=== PATIENT | female | born 1955 | race Caucasian/White ===

== ENCOUNTER 2016-08-07 15:34 | Inpatient (IN) | payer OTHER ==
[~2016-08-07] VITALS: Ht 170.2 cm; Wt 51.6 kg
--- NOTE | ~2016-08-07 | CATHLAB ---
[facility] [address] [place] [address] INVASIVE PROCEDURE REPORT Name: VELMA CHEN JENNIFER Room #: 213-P [facility] IN ..#: [id number] Admission: 08/07/16 Attend Phys: Memo Parish, Discharge: Date of : 59 Date of Service: 08/08/16 1317 Report #: [id number] THIS REPORT FOR: //name// APPROVED REPORT Patient Location: In-Patient Room #: Procedure: The potential benefits and risks of the procedure were discussed with the patient in detail. Full written and informed consent was obtained. Velma Chen was brought into the catheterization suite where her right groin was prepped and draped in a sterile fashion. She was sedated with intravenous Versed. 1% Xylocaine was used as local anesthetic. A 6 Australian sheath was placed in the right femoral artery by the modified Seldinger technique. Left heart catheterization was performed with a 6 Australian angled pigtail catheter. Ventriculography was performed in the SORIANO projection. Pullback gradients were measured across the aortic valve. Selective coronary angiography was performed with a 6 Australian left and right 4 cm Louise coronary catheter. All diagnostic catheters removed. Attention was turned to a critical narrowing within the mid right coronary. She was premedicated with aspirin Effient load, heparin bolus, and Integrilin. A 6 Australian JR4 guide catheter was placed over wire with its tip at the origin of the right coronary. A 0.014 inch luge wire was used to traverse the mid right coronary stenosis which was predilated with a 3.0 by 12 mm Euphora balloon. This balloon was removed and the lesion was stented with a 4.0 by 22 mm resolute stent deployed at 16 geovani for 30 seconds. The deployment balloon was removed and the stent was postdilated with a 4.0 x 12 mm NC Trek inflated several times in upwards of 22 geovani within the stent. Additional images were obtained. All catheters removed. A minx device was used upon removal of the right groin sheath. LVSP: 140 LVEDP 12 No gradient on pullback across the aortic valve Central arotic pressure: 142/70 VENTRICULOGRAPHY: Ventriculography demonstrated normal global and regional left ventricular systolic function. Ejection fraction 65%. [facility] [address] [place] [address] INVASIVE PROCEDURE REPORT Name: VELMA CHEN [facility] Room #: 213-P [facility]#: [id number] Admission: 08/07/16 Attend Phys: Memo Parish, Discharge: Date of : 59 Date of Service: 08/08/16 1317 Report #: [id number] SELECTIVE CORONARY ANGIOGRAPHY: 1. Left main: The left main was angiographically normal. 2. Left anterior descending: The left anterior descending was a large vessel that extended to the apex. The mid LAD just after the first septal hotel services supervisor exhibited a 30-40% stenosis this was followed by a 50% stenosis. The remaining portion of the LAD appeared to be angiographically normal. 3. Circumflex: Circumflex was small and nondominant 4. Right coronary artery: The right coronary was large and dominant. The mid right coronary exhibited a severe 95% stenosis POST ANGIOPLASTY AND STENTING: The mid right coronary was ballooned and then stented with a 4.0 x 22 mm resolute medicated stent, postdilated to 4.25 mm with a noncompliant balloon. 0% residual stenosis remained with REINA-3 flow maintained. Conclusion 1. Normal global and regional left ventricular systolic function. 2. Normal left main 3. Moderate mid LAD disease of 40-50% 4. Small, nondominant circumflex 5. Dominant right coronary with a critical mid right coronary stenosis successfully stented with a 4.0 x 22 mm resolute medicated stent postdilated to 4.2 mm <ELECTRONICALLY SIGNED> By: Adolfo Watts MD, [facility] 08/08/167 16 16 Adolfo Watts MD, FAC /INF
--- NOTE | ~2016-08-07 | EKG ---
[address] [address] ELECTROCARDIOGRAM REPORT Name: VELMA CHEN Room #: 213-P ADM IN M.R.#: [id number] Admission: 08/07/16 Attend Phys: Memo Parish MD, Discharge: Date of : 59 Report #: [id number] THIS REPORT FOR: //name// [facility] Test Date: 2016-08-07 Test Time: 17:53:33 Pat Name: VELMA CHEN Department: Room: 213 P Gender: F Physical Chemistry Teacher: ROSY : 1955 Requested By: Memo Parish Order Number: [id number] : Andrea Hubbard Measurements Intervals [place] Rate: 59 P: -42 KS: 144 QRS: 7 QRSD: 86 T: 20 QT: 407 QTc: 404 Interpretive Statements Sinus rhythm Compared to ECG 10/27/2014 22:06:58 Myocardial infarct finding no longer present Electronically Signed On 08-08-2016 16:18:27 CDT by Andrea Hubbard [email or web address] <ELECTRONICALLY SIGNED> By: Andrea Hubbard MD 08/08/16 1618 175 175 Andrea Hubbard MD /DAMASO
--- NOTE | ~2016-08-07 | EKG ---
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
--- NOTE | ~2016-08-07 | EKG ---
[place] [address] [facility] [place] [address] ELECTROCARDIOGRAM REPORT Name: VELMA CHEN JENNIFER Room #: 213- DIS IN M.R.#: [id number] Admission: 08/07/16 Attend Phys: Memo Parish MD, Discharge: 08/09/16 Date of : 59 Report #: [id number] THIS REPORT FOR: //name// [facility] Test Date: 2016-08-09 Test Time: 07:43:13 Pat Name: VELMA CHEN Department: Room: 213 Gender: F Staffing Specialist: ROSY : 1955 Requested By: Adolfo Watts Order Number: [id number] MD: Adolfo Watts Measurements Intervals [place] Rate: 65 P: 7 NC: 159 QRS: 10 QRSD: 91 T: 17 QT: 399 QTc: 415 Interpretive Statements Sinus rhythm Poor R wave progression Baseline wander in lead(s) V4,V5 Compared to ECG 08/08/2016 13:40:55 No significant change was found Electronically Signed On 08-10-2016 8:40:53 CDT by Adolfo Watts [email or web address] <ELECTRONICALLY SIGNED> By: Adolfo Watts MD, FACC 08/10/16 0840 0743 0743 Adolfo Watts MD, [facility] /EPI
--- NOTE | ~2016-08-07 | D ---
[facility] [place] [address] DISCHARGE SUMMARY Name: VELMA CHEN Room #: 213-P [facility] IN M.R.#: [id number] Admission: 08/07/16 Attend Phys: Memo Parish MD, Discharge: 08/09/16 Date of : 59 Report #: [id number] THIS REPORT FOR: //name// CC: Zion Parish [facility]: The patient is a 61-year-old female admitted with unstable anginal symptoms after having a week of jaw pain and abnormal stress echo in my office. She was ruled out with a troponin of 0.05, had recurrent pain and taken to the laborer concrete paving yesterday by my partner, Dr. Adolfo Watts. She had a subtotal mid RCA lesion. She had a 50% LAD lesion. He placed a 4.0 x 22 Resolute drug-eluting stent and postdilated to 4.2 mm in size, yielding 0% residual and REINA grade 3 flow. Small hematoma in the right groin ensued. This is soft without bruit. Minimal discomfort. She is up and ambulating and feeling well. Laboratory work is unremarkable. Troponin was 0.06 and then 0.05, not diagnostic for an ischemic event. Lipids favorable. Cholesterol 128, HDL 62, LDL 53, trig 65. Creatinine 0.7, potassium 3.9. H and H 12.3 and 35.9. She will be discharged to home on aspirin and Effient dual antiplatelet therapy for 6 months. I will decrease to a baby aspirin after a month. PPI as tolerated, Lipitor 40 and lisinopril 5 mg. No lifting for 48 hours. No lying in tub, Jacuzzi or bray for a week. Follow up will be with me in 1 month. I have discussed this in detail with her and her , Nick Chen. DISCHARGE DIAGNOSES: 1. Unstable angina. 2. Coronary artery disease, successful stent to dominant right coronary artery as stated above. 3. Preserved left ventricular function, 50% left anterior descending lesion. We will follow. 4. Borderline hypercholesterolemia, although low on the readings here. 5. Prior tobacco use. RECOMMENDATIONS AND PLAN: As stated above. She will call with any issues. May start aerobic activity after 72 hours. No lifting for a week because of the groin. By: 1145 1354 Memo Parish MD, FACC /nt
--- NOTE | ~2016-08-07 | EKG ---
[address] [address] ELECTROCARDIOGRAM REPORT Name: VELMA CHEN Room #: 213-P ADM IN M.R.#: [id number] Admission: 08/07/16 Attend Phys: Meom Parish MD, Discharge: Date of : 59 Report #: [id number] THIS REPORT FOR: //name// [facility] Test Date: 2016-08-08 Test Time: 08:10:07 Pat Name: VELMA CHEN Department: Room: 213 P Gender: F Hose Inspector And Patcher: MAGDALENE : 1955 Requested By: Donya Swan Order Number: [id number] MD: Andrea Hubbard Measurements Intervals [place] Rate: 68 P: 23 [place]: 145 QRS: 0 QRSD: 87 T: 5 QT: 403 QTc: 429 Interpretive Statements Sinus rhythm Probable anterior infarct, old Baseline wander in lead(s) V2 Compared to ECG 10/27/2014 22:06:58 No significant changes Electronically Signed On 08-08-2016 16:28:09 CDT by Andrea Hubbard [email or web address] <ELECTRONICALLY SIGNED> By: Andrea Hubbard MD 08/08/16 1628 0810 0810 Andrea Hubbard MD /EPI
[~2016-08-07 15:34] MED LIST: ASA5UEC PO; CELEBREX 200 M200 M1 PO; OXYCONTIN10 M1 PO; PERCOCET 10-321 EACH PO
[2016-08-07 17:12] VITALS: BP 164/98
[2016-08-07 18:19] LABS: HEMATOCRIT 40.9 % (37.0-47.0); HEMOGLOBIN 14.2 gm/dL (12.0-15.0); MCH 34.1 pg (26.0-34.0); MCHC 34.8 g/dL (28.0-37.0); MCV 98.2 fL (80.0-100.0); RBC 4.17 mil/uL (4.20-5.00); RDW 12.7 % (10.5-14.5); WBC 5.3 thou/uL (4.0-11.0)
[2016-08-07 20:30] VITALS: BP 129/54; BP 138/87
[2016-08-08] VITALS (15 sets, daily range): BP systolic 68–136; BP diastolic 42–98
[2016-08-08 11:48] LABS: CALCIUM 9.4 mg/dL (8.5-10.1); CREATININE 0.7 mg/dL (0.6-1.0)
[2016-08-09 04:20] VITALS: BP 107/68
[2016-08-09 04:44] LABS: HEMATOCRIT 35.9 % (37.0-47.0); HEMOGLOBIN 12.3 gm/dL (12.0-15.0); MCH 34.3 pg (26.0-34.0); MCHC 34.3 g/dL (28.0-37.0); MCV 99.8 fL (80.0-100.0); RBC 3.59 mil/uL (4.20-5.00); RDW 12.5 % (10.5-14.5)
[2016-08-09 05:02] LABS: ANION GAP 6 mmol/L (7-16); BUN 12 mg/dL (7-18); CALCIUM 8.4 mg/dL (8.5-10.1); CHLORIDE 107 mmol/L (98-107); CHOLESTEROL 128 mg/dL (<200); CO2 28 mmol/L (21-32); CREATININE 0.7 mg/dL (0.6-1.0); GLUCOSE 89 mg/dL (74-106); HDL CHOLESTEROL 62 mg/dL (>40); LDL CHOLESTEROL 53 mg/dL (<100); POTASSIUM 3.9 mmol/L (3.5-5.1); SODIUM 141 mmol/L (136-145); TC:HDL 2.1 Ratio (Not establshd); TRIGLYCERIDE 65 mg/dL (<150); TROPONIN-I 0.05 ng/mL (<0.04-0.07); VLDL 13 mg/dL (<40)
[2016-08-09 05:06] LABS: SERUM ASSESSMENT Clear
[2016-08-09 07:37] VITALS: BP 122/83
[2016-08-09 08:00] VITALS: BP 122/83
[2016-08-09] MEDS ORDERED: ATORVASTATIN CA40 MG PO (10:03)
[2016-08-09] MEDS ORDERED: ASPIRIN EC81 M1 PO (10:03)
[2016-08-09] MEDS ORDERED: LISINOPRIL5 MG PO (10:03)
[2016-08-09] MEDS ORDERED: EFFIENT10 MG PO (10:03)
[2016-08-09 10:20] VITALS: BP 122/83
[2016-08-09 13:01] VITALS: BP 122/83
== END 2016-08-09 13:06 | disposition home or self-care (01) | DRG 247 ==
LOC: 2N 15:34
PROVIDERS: Internal Medicine; Internal Medicine Cardiovascular Disease
PROC: B2151ZZ Fluoroscopy of Left Heart using Low Osmolar Contrast (ICD-10-PCS; principal; 2016-08-08)
PROC: 027034Z Dilation of Coronary Artery, One Artery with Drug-eluting Intraluminal Device, Percutaneous Approach (ICD-10-PCS; principal; 2016-08-08)
PROC: B2111ZZ Fluoroscopy of Multiple Coronary Arteries using Low Osmolar Contrast (ICD-10-PCS; principal; 2016-08-08)
PROC: 4A023N7 Measurement of Cardiac Sampling and Pressure, Left Heart, Percutaneous Approach (ICD-10-PCS; principal; 2016-08-08)
DX: I25.110 Atherosclerotic heart disease of native coronary artery with unstable angina pectoris (principal); E78.00 Pure hypercholesterolemia, unspecified; R42 Dizziness and giddiness; F17.290 Nicotine dependence, other tobacco product, uncomplicated; Z79.82 Long term (current) use of aspirin; Z79.899 Other long term (current) drug therapy; Z82.49 Family history of ischemic heart disease and other diseases of the circulatory system
CPT/HCPCS: 10081

== ENCOUNTER → 2017-06-24 | Outpatient (CLI) | payer OTHER ==
[~2017-06-24] MED LIST changes: +ASPIRIN EC81 M1 PO; +ATORVASTATIN CA40 MG PO; +EFFIENT10 MG PO; +LISINOPRIL5 MG PO
== END ==
LOC: NUC 07:10 → EDSTATUS 13:42 → NUC 13:45
DX: R07.9 Chest pain, unspecified (principal); R07.0 Pain in throat; I25.10 Atherosclerotic heart disease of native coronary artery without angina pectoris

== ENCOUNTER → 2019-07-05 | Outpatient (CLI) | payer OTHER ==
[~2019-07-05] MED LIST changes: +LISINOPRIL30 MG PO
== END ==
LOC: SJCVCIMAG 14:59
DX: I25.10 Atherosclerotic heart disease of native coronary artery without angina pectoris (principal); I49.3 Ventricular premature depolarization; R00.0 Tachycardia, unspecified; I10 Essential (primary) hypertension; E78.5 Hyperlipidemia, unspecified; Z79.899 Other long term (current) drug therapy; Z87.891 Personal history of nicotine dependence

== ENCOUNTER 2019-07-06 11:29 | Outpatient (CLI) | payer OTHER ==
[~2019-07-06] VITALS: Ht 172.7 cm; Wt 55.3 kg
--- NOTE | ~2019-07-06 | H ---
[facility] [place] [address] [place] [address] HISTORY AND PHYSICAL Name: VELMA CHEN Room #: 213-P [facility]..#: [id number] Admission: 07/06/19 Attend Phys: Memo Parish MD, Discharge: Date of : 59 Report #: [id number] THIS REPORT FOR: cc: Zion Chen MD,Memo Cabrera MD, MD [facility] ~ CC: Nick Parish DATE OF SERVICE: 07/06/2019 HISTORY OF PRESENT ILLNESS: The patient is a 64-year-old female well known to myself. She is admitted today for cardiac catheterization. She has had one month history of some accelerating chest discomfort similar to and intermittent, sometimes with exertion. This is consistent with her prior anginal symptoms and she had a 4-0 drug-eluting stent placed to her mid distal right 3 years ago. She underwent nuclear stress testing in my office yesterday. There is some subtle inferior septal and inferior ____ ischemia. I did review this with Dr. Chauhan and also discussed this with her , Dr. Nick Chen. She has been otherwise doing well, perhaps a slight decrease in exercise tolerance, but certainly no unstable symptoms. She has been maintained on baby aspirin, atorvastatin 40, lisinopril 30. Her lipids have been favorable. Her last LDL was 57. There are no associated EKG changes. PAST MEDICAL HISTORY: Positive for coronary artery disease with the prior stent in 2017, hypercholesterolemia, hip fracture, prior tobacco use and hysterectomy. SOCIAL HISTORY: She is , 4 children. She is a grandmother, very minimal cigarette usage, social alcohol, no drug use. FAMILY HISTORY: Both father and brother had premature coronary artery disease with infarcts in their 50s and 60s. REVIEW OF SYSTEMS: Essentially negative except for stated above. PHYSICAL EXAMINATION: GENERAL: She is pleasant, alert. VITAL SIGNS: Blood pressure 110/____, pulse is 70s. HEENT: Eyes reveal xanthelasmas. Pharynx is clear. NECK: Shows preserved upstrokes without JVD or bruits. LUNGS: Clear. CARDIOVASCULAR: Regular rate and rhythm, S1 and S2, without murmur or gallop. ABDOMEN: Soft. No HSM or abdominal bruit. EXTREMITIES: Reveal no edema. Distal pulses were intact. NEUROLOGIC: Nonfocal. [facility] [address] [place] [address] HISTORY AND PHYSICAL Name: VELMA CHEN [facility] Room #: 213-P [facility].#: [id number] Admission: 07/06/19 Attend Phys: Memo Parish MD, Discharge: Date of : 59 Report #: [id number] SKIN: Warm and dry without xanthoma or ulcer. MUSCULOSKELETAL: No gross joint deformity. ASSESSMENT: 1. Coronary artery disease with angina and abnormal nuclear stress test. 2. History of coronary stent previously placed in April 2016 to dominant right coronary artery. 3. Hypertension. 4. Hypercholesterolemia. 5. Prior tobacco use. RECOMMENDATIONS AND PLAN: We will proceed to the catheterization lab to delineate the anatomy. Risks, benefits, and alternatives were discussed with the patient and her , we will proceed. Thank you for asking me to assist in the care of this patient. By: 1626 1638 Memo Parish MD, FACC /nt
[~2019-07-06 11:29] MED LIST changes: -LISINOPRIL30 MG PO
[2019-07-06 12:08] VITALS: BP 128/65
[2019-07-06] MEDS ORDERED: LISINOPRIL30 MG PO (12:19)
[2019-07-06 12:20] LABS: HEMATOCRIT 39.8 % (37.0-47.0); HEMOGLOBIN 13.6 gm/dL (12.0-15.0); MCH 34.4 pg (26.0-34.0); MCHC 34.3 g/dL (28.0-37.0); MCV 100.3 fL (80.0-100.0); RBC 3.97 mil/uL (4.20-5.00); RDW 12.5 % (10.5-14.5); WBC 5.4 thou/uL (4.0-11.0)
[2019-07-06 12:28] LABS: CREATININE 0.7 mg/dL (0.6-1.0); POTASSIUM 4.3 mmol/L (3.5-5.1)
[2019-07-06 17:08] VITALS: BP 124/76
--- NOTE | 2019-07-06 17:20 | NUR ---
REC PT FROM DATA MANAGEMENT ASSOCIATE APPROX 1655, DRESSING CDI, ON TELEMETRY, PT IS A&0X4, AMB INDEPENDENTLY NORMALLY; AWARE OF RESTRICTIONS W/R GROIN. SEE SEPARATE INTERVENTIONS FOR ASSESSMENTS. SEE SEPARATE DATE FLOW SHEET FOR VS. PT EATING DINNER AND TEXTING CHILDREN. MAIN CONCERN AT THIS TIME WAS NEED TO VOID AND HUNGER. INTRO TO ROOM AND CALL LIGHT SYSTEM. ENCOURAGED HER TO USE CALL LIGHT FOR ANY NEEDS
[2019-07-07 00:45] VITALS: BP 91/59
--- NOTE | 2019-07-07 02:58 | NUR ---
PT OFF BEDREST AT 2130 R GROIN DRESSING WITH DD, NO HEMOTOMA, NO C/O PAIN, VSS, AMBULATED IN LAN[place] WITH OUT ANY DIFFICULTY, HOPING TO GO HOME IN AM, WILL CON'T TO MONITOR PER PPOC.
[2019-07-07 04:31] LABS: HEMATOCRIT 37.9 % (37.0-47.0); MCH 34.6 pg (26.0-34.0); MCHC 34.2 g/dL (28.0-37.0); MCV 101.1 fL (80.0-100.0); RBC 3.75 mil/uL (4.20-5.00); RDW 12.7 % (10.5-14.5); WBC 5.6 thou/uL (4.0-11.0)
[2019-07-07 04:45] VITALS: BP 107/63
[2019-07-07 04:56] LABS: ALBUMIN 3.4 g/dL (3.4-5.0); ANION GAP 7 mmol/L (7-16); BUN 17 mg/dL (7-18); CALCIUM 8.3 mg/dL (8.5-10.1); CHLORIDE 104 mmol/L (98-107); CO2 26 mmol/L (21-32); CREATININE 0.6 mg/dL (0.6-1.0); GLUCOSE 82 mg/dL (74-106); POTASSIUM 3.8 mmol/L (3.5-5.1); SGOT 21 U/L (15-37); SGPT 26 U/L (30-65); SODIUM 137 mmol/L (136-145); TOTAL BILIRUBIN 0.6 mg/dL (<0.1-1.0); TOTAL PROTEIN 6.3 g/dL (6.4-8.2); TROPONIN-I <0.06 ng/mL (<0.06)
[2019-07-07 07:28] VITALS: BP 118/72
--- NOTE | 2019-07-07 08:47 | EKG ---
[facility] [place] [address] ELECTROCARDIOGRAM REPORT Name: APRLIVELMA Room #: 213-P 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 Machine Operator: Juan MOSQUEDA : 1955 Requested By: Memo Parish Order Number: [id number] MD: Adolfo Watts Measurements Intervals [place] Rate: 72 P: -3 UT: 175 QRS: -1 QRSD: 81 T: 33 QT: 392 QTc: 430 Interpretive Statements Sinus rhythm Anteroseptal infarct, age indeterminate Compared to ECG 08/09/2016 07:43:13 No significant change was found Electronically Signed On 07-07-2019 8:45:57 CDT by Adolfo Watts [email or web address] <ELECTRONICALLY SIGNED> By: Adolfo Watts MD, FAC 07/07/19 0845 1158 1158 Adolfo Watts MD, FAC /EPI
[2019-07-07 09:31] VITALS: BP 118/72
--- NOTE | 2019-07-07 09:32 | EKG ---
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: AMERICO : 1955 Requested By: Memo Parish Order Number: [id number] MD: Adolfo Watts Measurements Intervals [place] Rate: 58 P: 6 MO: 168 QRS: 4 QRSD: 91 T: 31 QT: 409 QTc: 402 Interpretive Statements Sinus bradycardia Otherwise no significant abnormality Compared to ECG 08/09/2016 07:43:13 No significant change was found Electronically Signed On 07-07-2019 9:30:02 CDT by Adolfo Watts [email or web address] <ELECTRONICALLY SIGNED> By: Adolfo Watts MD, [facility] [birth year]/1930 4 4 Adolfo Watts MD, [facility] /EPI
--- NOTE | 2019-07-07 10:22 | NUR ---
ASSESSESSMENT CHARTED PT ALERT AND ORIENTED. VSS. DENIED HAVING PAIN OR DISCOMFORT. RIGHT GROIN INCISION C/D/I. NO HEMATOMA NOTED. ORDERS GIVEN TO DISCHARGE PT TO HOME. DISCHARGE INSTRUCTIONS GIVEN TO PT. PT VERBERLISED UNDERSTANDING.
--- NOTE | 2019-07-07 12:49 | CATHLAB ---
[facility] [place] [address] INVASIVE PROCEDURE REPORT Name: VELMA CHEN Room #: DEP MIGEL Butt#: [id number] Admission: 07/06/19 Attend Phys: Memo Parish MD, Discharge: 07/07/19 Date of : 59 Report #: [id number] THIS REPORT FOR: cc: Zion Chen MD, Christopher B. MD Mancuso, Gerald M. MD [facility] ~ APPROVED REPORT Study performed: 07/06/2019 15:11:12 Patient Details Patient Status: Out-Patient Room #: The patient is a 64 year-old female Event Personnel Memo Parish Reconciliation Analyst, Alia Agarwal RN RN, María Merrill RTR Scrub, Toña Fleming RTR, ELECTRONIC SCIENCE TEACHER, Scrub Procedures Performed Art Access - R femoral artery* Left Heart Cath w/or w/o Coronaries [id number] [facility] Aortogram Abdominal Peripheral Angio 583851 84548 Initial Mod Sed Same Phys/QHP Gr5y 963715 75694 Mod Sed Same Phys/QHP Ea 634686 Hemostasis w/ Mynx MATTHIAS Place w/wo Plasty Single RCA 093561 Indication Chest pain Procedure Narrative The Right Groin^ was infiltrated with 1% Lidocaine subcutaneous anesthesia. A PINNACLE 6FR Sheath #[id number] sheath was inserted into the RFA^. Coronary angiography was performed using coronary diagnostic catheters. The right coronary system was accessed and visualized with a JR4 catheter. The left coronary system was accessed and visualized with a JL4 catheter. The left ventricle was accessed and visualized with a PIGTAIL catheter. Left ventriculogram was performed in 30 degree projection. An aortogram of the abdominal aorta was performed. Closure device was deployed with a 6 Fr MynxGrip 6/7F. The patient tolerated the procedure well and there were no complications associated with the procedure. There was no hematoma. Intraoperative Conscious Sedation [facility] [address] [place] [address] INVASIVE PROCEDURE REPORT Name: APRILVELMA JENNIFER Room #: [facility] Daquan#: [id number] Admission: 07/06/19 Attend Phys: Memo Parish, Discharge: 07/07/19 Date of : 59 Report #: [id number] Sedation start time: 15:37 Case end Time: 16:34 Fluoro Time: 5.48 minutes Dose: DAP 4216.90 cGycm2 506 mGy Contrast Type and Amount: Omnipaque 145 ml Hemodynamics The aortic pressure is 114/65 mmHg with a mean of 84 mmHg. The left ventricular pressure is 123/1 mmHg with a mean of mmHg. The left ventricular end diastolic pressure is 14 mmHg. PCI Technique Lesion Percutaneous coronary intervention was performed on the mistal right coronary artery. A 6F JR4 LAUNCHER Guide Catheter was used to engage the ostium. A .014 LUGE WIRE 182CM Interventional Guidewire was used to cross the lesion. STENT DEPLOYMENT A drug-eluting stent 3.0 X 12 RESOLUTE DAMIÁN OTW was inserted and inflated up to 10.00atm for 30seconds. Additional Inflation: 16.00atm for 26seconds. Additional Inflation: 18.00atm for 24seconds. Conclusion 1. Successful PTCA stent of the distal RCA dominant vessel long 80% lesion distal to the previously placed 4 oh stent placement of a 3 oh by 12 resolute Kohler postdilated to 3.25 mm REINA grade III flow no dissection or thrombus formation. #2 left main mild disease mildly calcified giving rise to LAD and circumflex #3 LAD with proximal calcification eccentric 50% lesion followed by an eccentric 60% lesion at a small diagonal takeoff then a well-preserved distal two thirds of this vessel. Not flow-limiting. #4 circumflex OM nondominant with mild irregularity #5 normal left jugular size and systolic function EF 60% #6 abdominal aortogram revealed mild plaquing but no evidence of aneurysm single bilateral renal arteries widely patent. Recommendations and plan: Continue aggressive risk factor modification dual antiplatelet therapy reinitiated for additional RCA [address] [address] INVASIVE PROCEDURE REPORT Name: VELMA CHEN JENNIFER Room #: [facility] uBtt#: [id number] Admission: 07/06/19 Attend Phys: Memo Parish, Discharge: 07/07/19 Date of : 59 Report #: [id number] stent. Transfer to [facility] in stable condition follow post stent protocol. <ELECTRONICALLY SIGNED> By: Memo Parish MD, FACC 07/07/19 124 46 46 Memo Parish MD, FACC /INF
== END 2019-07-07 10:22 | disposition home or self-care (01) ==
LOC: CATH 11:29 → 2N 17:27 → CATH 07-07 10:22
PROVIDERS: Internal Medicine Cardiovascular Disease
DX: R07.9 Chest pain, unspecified (principal); R94.39 Abnormal result of other cardiovascular function study; I25.119 Atherosclerotic heart disease of native coronary artery with unspecified angina pectoris; E78.00 Pure hypercholesterolemia, unspecified; Z98.890 Other specified postprocedural states; Z79.899 Other long term (current) drug therapy; Z90.710 Acquired absence of both cervix and uterus; Z79.82 Long term (current) use of aspirin; Z82.49 Family history of ischemic heart disease and other diseases of the circulatory system; Z87.891 Personal history of nicotine dependence; Z87.442 Personal history of urinary calculi
CPT/HCPCS: 10081

== ENCOUNTER → 2020-02-12 | Outpatient (CLI) | payer OTHER ==
[~2020-02-12] MED LIST changes: +LISINOPRIL30 MG PO
== END ==
LOC: SJCVCIMAG 07:59
PROVIDERS: ATTEND Internal Medicine Cardiovascular Disease
DX: I25.10 Atherosclerotic heart disease of native coronary artery without angina pectoris (principal); R07.9 Chest pain, unspecified; R06.09 Other forms of dyspnea; I10 Essential (primary) hypertension; E78.5 Hyperlipidemia, unspecified

== ENCOUNTER → 2020-09-23 | Outpatient (CLI) | payer OTHER | LOC: SJCVCIMAG 09:51 | PROVIDERS: ATTEND Internal Medicine Cardiovascular Disease | DX: I25.10 Atherosclerotic heart disease of native coronary artery without angina pectoris (principal); R07.9 Chest pain, unspecified; Z95.5 Presence of coronary angioplasty implant and graft ==